=== PATIENT | male | born 1930 | race Caucasian/White ===

== ENCOUNTER → 2016-06-16 | Outpatient (CLI) | payer MEDICARE | LOC: OD 10:29 | PROVIDERS: ATTEND Student in an Organized Health Care Education/Training Program | DX: L03.116 Cellulitis of left lower limb (principal); M79.89 Other specified soft tissue disorders ==

== ENCOUNTER → 2016-07-25 | Outpatient (CLI) | payer MEDICARE, MEDICAID | LOC: OD 10:40 | PROVIDERS: ATTEND Nurse Practitioner Family | DX: L97.522 Non-pressure chronic ulcer of other part of left foot with fat layer exposed (principal) ==

== ENCOUNTER → 2016-07-26 | Outpatient (CLI) | payer MEDICARE, MEDICAID ==
--- NOTE | 2016-07-26 17:19 | XCELERA REPORT ---
[address] [address] Lower Extremity Arterial Evaluation Name: DYLLAN DEMARCO Age: 86 yrs Gender: Male : 1930 Patient Status: Outpatient Patient Location: Study Date: 07/26/2016 01:07 PM Procedure: A color flow and duplex scan of the lower extremity arteries was performed bilaterally with velocity and waveform anaylsis. 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 Stenosed Femoral , monophasic with preserved velocity to the Popliteal. Monophasic with decreased velocity to the Posterior Tibial artery. Occluded Anterior Tibial artery with monophasic reconstitution. 50-99% stenosis at the Femoral artery . With severe sequential disease. Ankle Brachial index not obtainable, non compressible. Left Side Arterial Evaluation Normal velocity and biphasic waveforms noted in the Common Femoral artery. Triphasic in the Deep femoral. Occluded Femoral , monophasic reconstitution with decreased velocity to the infrageniculate arteries. 20-49 % stenosis at the inflow arteries . With severe sequential disease. Ankle Brachial index not obtainable, non compressible. Interpretation Summary Severe hemodynamically significant lesions in the bilateral lower extremities, on duplex imaging, at rest. : JOSE JUAN ESPINAL > Juan Linton
== END ==
LOC: SP 12:32
PROVIDERS: ATTEND Nurse Practitioner Family
DX: L97.522 Non-pressure chronic ulcer of other part of left foot with fat layer exposed (principal)
CPT/HCPCS: 93925

== ENCOUNTER 2016-08-29 22:58 | Inpatient (IN) | payer MEDICARE, MEDICAID ==
--- NOTE | 2016-08-29 23:16 | ER Document Report ---
ED General - General Stated Complaint: WEAKNESS Time Seen by Provider: 08/29/16 23:05 Notes: Patient is a 86-year-old male who presents with complaint of weakness. Patient himself feels well. Patient lives with family. Per the paramedics of family says that yesterday he was up and walking and today he did not want to get up and walking easing more weak than usual. No recent fevers. Patient denies any pain. Patient has no other complaints at this time. Denies any vomiting or diarrhea. He denies chest pain. He had normal temperature via paramedics. His oxygenation was around 95% on room air. TRAVEL OUTSIDE OF THE [place] IN LAST 30 DAYS: No - Related Data Allergies/Adverse Reactions: No Known Allergies Allergy (Verified 03/10/12 10:44) Home Medications: Current Home Medications Aspirin [Aspirin EC] 1 tab PO DAILY 08/30/16 [History] Melatonin 3 mg PO DAILYP PRN 08/30/16 [History] Potassium Chloride [K-Tab] 10 meq PO DAILY 08/30/16 [History] Past Medical History - Social History Smoking Status: Never Smoker Frequency of alcohol use: None Drug Abuse: None Family History: Reviewed & Not Pertinent - Past Medical History Cardiac Medical History: Reports: Hx Atrial Fibrillation, Hx Coronary Artery Disease, Hx Heart Attack, Hx Hypercholesterolemia, Hx Hypertension Pulmonary Medical History: Reports: Hx COPD Renal/ Medical History: Reports: Hx Renal Insufficiency GI Medical History: Reports: Hx Gastroesophageal Reflux Disease Musculoskeltal Medical History: Reports Hx Arthritis, Reports Hx Gout Psychiatric Medical History: Reports: Hx Dementia Past Surgical History: Reports: Hx Cardiac Catheterization, Hx Cardiac Surgery - "hole in heart repair", Hx Coronary Stent, Hx Gastric Bypass Surgery, Hx Orthopedic Surgery - back surgery - Immunizations Hx Diphtheria, Pertussis, Tetanus Vaccination: No Review of Systems - Review of Systems Notes: My Normal Review Basic REVIEW OF SYSTEMS: CONSTITUTIONAL : Denies fever, chills, or sweats. Denies recent illness. EENT: Denies eye, ear, throat, or mouth pain or symptoms. Denies nasal or sinus congestion. CARDIOVASCULAR: Denies chest pain. RESPIRATORY: Denies cough, cold, or chest congestion. Denies shortness of breath, difficulty breathing, or wheezing. GASTROINTESTINAL: Denies abdominal pain. Denies nausea, vomiting, or diarrhea. GENITOURINARY: Denies difficulty urinating, painful urination, burning, frequency, or blood in urine. MUSCULOSKELETAL: Denies neck or back pain or joint pain or swelling. SKIN: Denies rash or skin lesions. NEUROLOGICAL: Denies altered mental status or loss of consciousness. Denies headache. Denies weakness or paralysis or loss of use of either side. Denies problems with gait or speech. Denies sensory or motor loss. ALL OTHER SYSTEMS REVIEWED AND NEGATIVE. Physical Exam - Vital signs Vitals: Temp Pulse Resp BP Pulse Ox 101.9 F H 97 18 125/65 95 08/29/16 23:20 08/29/16 23:20 08/29/16 23:20 08/29/16 23:20 08/29/16 23:20 - Notes Notes: General Appearance: Well nourished, alert, cooperative, no acute distress, no obvious discomfort. Vitals: reviewed, See vital signs table. Head: no swelling or tenderness to the head Eyes: PERRL, EOMI, Conjuctiva clear Mouth: No decreasd moisture Throat: No tonsillar inflammation, No airway obstruction, No lymphadenopathy Neck: Supple, no neck tenderness Lungs: No wheezing, No rales, No rhonci, No accessory muscle use, good air exchange bilaterally. Heart: Normal rate, Regular rythm, No murmur, no rub Abdomen: Normal BS, soft, No rigidity, No abdominal tenderness, No guarding, no rebound, no abdominal masses, no organomegaly Extremities: strength 5/5 in all extremities, good pulses in all extremities, no swelling or tenderness in the extremities, no edema. Skin: warm, dry, appropriate color, no rash. 2 small wounds which are packed with iodine dressing on the dorsum of left foot. Some surrounding erythema. Wounds appear to be healing appropriately. Neuro: speech clear, oriented x 3, normal affect, responds appropriately to questions. Nerves II through XII are intact. Distal sensation intact. Patient moves all extremities without difficulty. Course - Re-evaluation Re-evalutation: 08/30/16 05:59 The exact cause of the patient's infection is not clear at this time. I suspect that it may be coming from his foot. There is some erythema there. Family does say it has been worsening in the last week. I see no other source of infection. He continues to remain tachycardic despite improvement of his fever. I have given him some IV fluids. I have started him on antibiotics. I have spoken with the hospitalist who agrees to admit the patient. Dictation of this chart was performed using voice recognition software; therefore, there may be some unintended grammatical errors. - Vital Signs Vital signs: Temp Pulse Resp BP Pulse Ox 101.9 F H 97 17 100/60 95 08/29/16 23:20 08/29/16 23:20 08/30/16 04:01 08/30/16 04:01 08/30/16 04:01 - Laboratory Result Diagrams: 08/29/16 23:39 08/29/16 23:39 Laboratory results interpreted by me: 08/29/16 08/29/16 23:39 23:39 RBC 3.99 L Hgb 13.0 L MCV 99 H Sodium 134.9 L Chloride 96 L BUN 63 H Creatinine 1.77 H Est GFR ( Amer) 44 L Est GFR (Non-Af Amer) 37 L Glucose 155 H Alkaline Phosphatase 206 H - EKG Interpretation by Me Additional EKG results interpreted by me: 08/29/16 23:47 EKG is reviewed and interpreted by me. EKG shows normal sinus rhythm with a rate of 93 bpm. Patient does have a right bundle branch block which is unchanged in comparison to his old EKG from November 24, 2015. OR interval is within normal range. QRS duration QT intervals are prolonged. No ischemic changes in comparison to his old EKG.
[2016-08-29] MEDS ORDERED: ACETAMINOPHEN 325 MG TABLET PO ONE (23:19)
--- NOTE | 2016-08-29 23:32 | RADIOLOGY REPORT (SQ) ---
EXAM DESCRIPTION: CHEST SINGLE VIEW COMPLETED DATE/TIME: 08/29/2016 11:23 pm REASON FOR STUDY: weakness COMPARISON: 11/24/2015 NUMBER OF VIEWS: One view. TECHNIQUE: Single frontal radiographic view of the chest acquired. LIMITATIONS: None. FINDINGS: LUNGS AND PLEURA: Peribronchial cuffing and increased interstitial changes. No consolidati on, pneumothorax or effusion. MEDIASTINUM AND HILAR STRUCTURES: Stable. HEART AND VASCULAR STRUCTURES: Stable. BONES: No acute findings. HARDWARE: CABG. OTHER: No other significant finding. IMPRESSION: Peribronchial cuffing and increased interstitial changes, likely early interstitial sun meliza TECHNICAL DOCUMENTATION: JOB ID: [id number] [employer]- All Rights Reserved
[2016-08-29 23:51] LABS: ABSOLUTE EOSINOPHILS # (AUTO) 0.1 10^3/uL (0.0-0.6); ABSOLUTE LYMPHOCYTES (AUTO) 1.7 10^3/uL (0.5-4.7); ABSOLUTE MONOCYTES (AUTO) 0.4 10^3/uL (0.1-1.4); ABSOLUTE NEUT (AUTO) 7.3 10^3/uL (1.7-8.2); BASOPHILS % (AUTO) 0.4 % (0-2); EOSINOPHILS % (AUTO) 0.7 % (0-6); HEMATOCRIT 39.3 % (37.9-51.0); HGB HCT DIFFERENCE -0.3; LYMPHOCYTES % (AUTO) 18.1 % (13-45); MEAN CORPUSCULAR HEMOGLOBIN 32.6 pg (27.0-33.4); MEAN CORPUSCULAR VOLUME 99 fl (80-97); RED BLOOD COUNT 3.99 10^6/uL (4.35-5.55); RED CELL DISTRIBUTION WIDTH 13.3 % (11.5-14.0); SEGMENTED NEUTROPHILS % (AUTO) 76.8 % (42-78); WHITE BLOOD COUNT 9.4 10^3/uL (4.0-10.5)
[2016-08-30] LABS: ALANINE AMINOTRANSFERASE 37 U/L (21-72); ALBUMIN 3.5 g/dL (3.5-5.0); ALKALINE PHOSPHATASE 206 U/L (38-126); ANION GAP 14 (5-19); ASPARTATE AMINO TRANSFERASE 44 U/L (17-59); BILIRUBIN,DIRECT 0.4 mg/dL (0.0-0.4); BILIRUBIN,TOTAL 0.8 mg/dL (0.2-1.3); BLOOD UREA NITROGEN 63 mg/dL (7-20); CALCIUM 8.8 mg/dL (8.4-10.2); CARBON DIOXIDE 25 mmol/L (22-30); CHLORIDE 96 mmol/L (98-107); CREATININE RESULT 1.77 mg/dL (0.52-1.25); GLUCOSE 155 mg/dL (75-110); POTASSIUM 4.8 mmol/L (3.6-5.0); SODIUM 134.9 mmol/L (137-145); TOTAL PROTEIN 6.7 g/dL (6.3-8.2)
[2016-08-30 01:31] LABS: APPEARANCE,URINE CLEAR; BILIRUBIN,URINE NEGATIVE (NEGATIVE); GLUCOSE, URINE NEGATIVE (NEGATIVE); KETONES,URINE NEGATIVE (NEGATIVE); LEUKOCYTE ESTERASE,URINE NEGATIVE (NEGATIVE); NITRITE,URINE NEGATIVE (NEGATIVE); PROTEIN,URINE NEGATIVE (NEGATIVE); URINE SPECIFIC GRAVITY 1.011; UROBILINOGEN,URINE NEGATIVE mg/dL (<2.0)
[2016-08-30] MEDS ORDERED: CEFTRIAXONE 1 GM/D5W RTU 50 ML IV ONE (02:53)
[2016-08-30] MEDS ORDERED: VANCOMYCIN HCL INJ 1000 MG VIAL IV ONE (02:53)
[2016-08-30] MEDS ORDERED: NORMAL SALINE 500 ML IV ONE (02:53)
[2016-08-30] MEDS ORDERED: OXYCODONE-ACETAMINOPHEN 5-325 MG TABLET PO PRN (08:12)
[2016-08-30] MEDS ORDERED: NORMAL SALINE 1000 ML 1,000 ML IV PRN (08:12)
[2016-08-30] MEDS ORDERED: ONDANSETRON HCL INJ/PF 4 MG/2 ML SDV IV PRN (08:12)
[2016-08-30] MEDS ORDERED: ACETAMINOPHEN 325 MG TABLET PO PRN (08:12)
[2016-08-30 09:12] LABS: ABSOLUTE EOSINOPHILS # (AUTO) 0.5 10^3/uL (0.0-0.6); ABSOLUTE LYMPHOCYTES (AUTO) 2.6 10^3/uL (0.5-4.7); ABSOLUTE MONOCYTES (AUTO) 0.5 10^3/uL (0.1-1.4); ABSOLUTE NEUT (AUTO) 5.4 10^3/uL (1.7-8.2); BASOPHILS % (AUTO) 0.5 % (0-2); HEMOGLOBIN 11.8 g/dL (13.5-17.0); HGB HCT DIFFERENCE -0.6; LYMPHOCYTES % (AUTO) 28.6 % (13-45); MEAN CORPUSCULAR HEMOGLOBIN 32.8 pg (27.0-33.4); MEAN CORPUSCULAR HGB CONC 32.8 g/dL (32.0-36.0); MEAN CORPUSCULAR VOLUME 100 fl (80-97); MONOCYTES % (AUTO) 5.7 % (3-13); RED CELL DISTRIBUTION WIDTH 13.6 % (11.5-14.0); SEGMENTED NEUTROPHILS % (AUTO) 59.2 % (42-78); WHITE BLOOD COUNT 9.1 10^3/uL (4.0-10.5)
[2016-08-30 09:29] LABS: ANION GAP 9 (5-19); BLOOD UREA NITROGEN 66 mg/dL (7-20); CALCIUM 8.4 mg/dL (8.4-10.2); CARBON DIOXIDE 26 mmol/L (22-30); CHLORIDE 100 mmol/L (98-107); CREATININE RESULT 1.83 mg/dL (0.52-1.25); GLUCOSE 90 mg/dL (75-110); POTASSIUM 4.1 mmol/L (3.6-5.0); SODIUM 134.5 mmol/L (137-145)
[2016-08-30] MEDS: AZITHROMYCIN 250 MG TABLET PO SCH (09:48)
[2016-08-30] MEDS: ALLOPURINOL 100 MG TABLET PO SCH (09:48)
[2016-08-30] MEDS: ASPIRIN 81 MG TABLET, ENT COATED PO SCH (09:48)
[2016-08-30] MEDS: DILTIAZEM HCL 120 MG CAP.SR.24H PO SCH (09:49)
[2016-08-30] MEDS: MEMANTINE HCL 10 MG TABLET PO SCH ×2 (09:49→20:01)
[2016-08-30] MEDS: DOCUSATE SODIUM 100 MG CAPSULE PO SCH ×2 (09:51→20:02)
[2016-08-30] MEDS: METOPROLOL TARTRATE 50 MG TABLET PO SCH (09:51)
[2016-08-30] MEDS ORDERED: GLUCAGON,HUMAN RECOMB 1 MG INJ IM PRN (09:55)
[2016-08-30] MEDS ORDERED: DEXTROSE 50%-WATER 25 GM/50 ML DISP.SYRIN IV PRN ×2 (09:55)
[2016-08-30] MEDS ORDERED: INSULIN LISPRO 100 UNIT/ML 3 ML VIAL SUBCUT PRN (09:55)
[2016-08-30] MEDS ORDERED: DEXTROSE 40% GEL 15 GM TUBE PO PRN ×2 (09:55)
[2016-08-30] MEDS ORDERED: VANCOMYCIN HCL 0 MG in DEXTROSE 5%-WATER 250 ML IV NR (10:00)
--- NOTE | 2016-08-30 10:23 | PDOC H&P ---
History of Present Illness Admission Date/PCP: 08/30/16 08:12 History of Present Illness: Patient has dementia and is unable to tell me why he is here. There is no family present at bedside. Current history is obtained from the emergency department notes and physician notes. I did discuss this with the ER physician. DYLLAN DEMARCO JR is a 86 year old male who presents with complaint of weakness. Patient himself feels well. Patient lives with family. Per the paramedics of family says that yesterday he was up and walking and today he did not want to get up and walking easing more weak than usual. No recent fevers. Patient denies any pain. Patient has no other complaints at this time. Denies any vomiting or diarrhea. He denies chest pain. He had normal temperature via paramedics. His oxygenation was around 95% on room air. Past Medical History Cardiac Medical History: Reports: Atrial Fibrillation, Coronary Artery Disease, Myocardial Infarction, Hyperlipidema, Hypertension Pulmonary Medical History: Reports: Chronic Obstructive Pulmonary Disease (COPD) GI Medical History: Reports: Gastroesophageal Reflux Disease Musculoskeltal Medical History: Reports: Arthritis, Gout Psychiatric Medical History: Reports: Dementia Past Surgical History Past Surgical History: Reports: Cardiac Catheterization, Coronary Stent, Gastric Bypass Surgery, Orthopedic Surgery - back surgery Social History Smoking Status: Never Smoker Frequency of Alcohol Use: None Hx Recreational Drug Use: No Hx Prescription Drug Abuse: No - Advance Directive Resuscitation Status: Other Family History Family History: Reviewed & Not Pertinent Parental Family History Reviewed: No - Demented Children Family History Reviewed: No Sibling(s) Family History Reviewed.: No Medication/Allergy Home Medications: Allopurinol [Zyloprim 100 mg Tablet] 100 mg PO DAILY 02/27/13 Diltiazem HCl [Dilt-Cd] 120 mg PO DAILY 02/27/13 Furosemide [Lasix 40 mg Tablet] 40 mg PO QAM 02/27/13 Memantine HCl [Namenda 10 mg Tablet] 10 mg PO BID 02/27/13 Metoprolol Tartrate [Lopressor 50 mg Tablet] 50 mg PO DAILY 02/27/13 Potassium Chloride 10 meq PO DAILY 02/27/13 Aspirin [Aspirin EC] 1 tab PO DAILY 08/30/16 Melatonin 3 mg PO DAILYP PRN 08/30/16 Potassium Chloride [K-Tab] 10 meq PO DAILY 08/30/16 Allergies/Adverse Reactions: No Known Allergies Allergy (Verified 03/10/12 10:44) Review of Systems ROS unobtainable: Due to mental status Physical Exam Vital Signs: Temp Pulse Resp BP Pulse Ox 97.6 F 97 17 110/61 95 08/30/16 08:45 08/29/16 23:20 08/30/16 06:01 08/30/16 06:01 08/30/16 06:01 General appearance: PRESENT: no acute distress, well-developed, well-nourished Head exam: PRESENT: atraumatic, normocephalic Eye exam: PRESENT: conjunctival injection - right eye, conjunctiva pink, EOMI, PERRLA. ABSENT: scleral icterus Ear exam: PRESENT: normal external ear exam Mouth exam: PRESENT: moist, tongue midline Neck exam: ABSENT: JVD, lymphadenopathy, thyromegaly, tracheal deviation Respiratory exam: PRESENT: prolonged expiratory phas, rhonchi - Minimal scattered, symmetrical, unlabored. ABSENT: accessory muscle use, chest wall tenderness, clear to auscultation yadira, rales, wheezes Cardiovascular exam: PRESENT: irregular rhythm, +S1, +S2, systolic murmur. ABSENT: diastolic murmur, gallop, rubs Pulses: ABSENT: normal dorsalis pedis pul - 1+/ dorsalis pedis right Vascular exam: PRESENT: normal capillary refill GI/Abdominal exam: PRESENT: distended, normal bowel sounds, soft. ABSENT: guarding, mass, Bocanegra's sign, organolmegaly, rebound, rigid, tenderness Rectal exam: PRESENT: deferred Extremities exam: ABSENT: calf tenderness, clubbing, pedal edema Neurological exam: PRESENT: alert, awake, oriented to person, CN II-XII grossly intact. ABSENT: oriented to place, oriented to time, oriented to situation, motor sensory deficit Psychiatric exam: PRESENT: appropriate affect, normal mood, other - Pleasantly demented. ABSENT: homicidal ideation, suicidal ideation Skin exam: PRESENT: dry, warm. ABSENT: cyanosis, intact - 2 1 cm in diameter lesions on the dorsal aspect of the right foot consistent with venous stasis ulcers, rash Results Laboratory Results: 08/30/16 09:00 08/30/16 09:00 08/30/16 08/30/16 09:00 09:00 WBC 9.1 RBC 3.60 L Hgb 11.8 L Hct 36.0 L MCV 100 H MCH 32.8 MCHC 32.8 RDW 13.6 Plt Count 148 L Seg Neutrophils % 59.2 Lymphocytes % 28.6 Monocytes % 5.7 Eosinophils % 6.0 Basophils % 0.5 Absolute Neutrophils 5.4 Absolute Lymphocytes 2.6 Absolute Monocytes 0.5 Absolute Eosinophils 0.5 Absolute Basophils 0.0 Sodium 134.5 L Potassium 4.1 Chloride 100 Carbon Dioxide 26 Anion Gap 9 BUN 66 H Creatinine 1.83 H Est GFR ( Amer) 43 L Est GFR (Non-Af Amer) 35 L Glucose 90 Calcium 8.4 08/30/16 09:00 Troponin I 0.031 Impressions: Chest X-Ray 08/29/16 23:12 IMPRESSION: Peribronchial cuffing and increased interstitial changes, likely early interstitial edema. Assessment & Plan - Diagnosis (1) Sepsis Qualifiers: Sepsis type: sepsis due to unspecified organism Qualified Code(s): A41.9 - Sepsis, unspecified organism Is this a current diagnosis for this admission?: YesPlan: Technical sepsis criteria on admission with my current suspected source being underlying pneumonia plus or minus cellulitis (2) Afib Qualifiers: Atrial fibrillation type: chronic Qualified Code(s): I48.2 - Chronic atrial fibrillation Is this a current diagnosis for this admission?: YesPlan: Currently on metoprolol and is not on blood thinner. (3) CAD (coronary artery disease) Qualifiers: Coronary Disease-Associated Artery/Lesion type: unspecified vessel or lesion type [place] vs. transplanted heart: unspecified whether [place] or transplanted heart Is this a current diagnosis for this admission?: Yes (4) Chronic obstructive pulmonary disease (COPD) Qualifiers: COPD type: unspecified COPD Qualified Code(s): J44.9 - Chronic obstructive pulmonary disease, unspecified Is this a current diagnosis for this admission?: YesPlan: We will repeat patient's chest x-ray. Suspect patient may have underlying pneumonia. Place on scheduled nebulized treatments. (5) Dementia Qualifiers: Dementia type: unspecified type Dementia behavioral disturbance: without behavioral disturbance Qualified Code(s): F03.90 - Unspecified dementia without behavioral disturbance Is this a current diagnosis for this admission?: Yes (6) Gout Qualifiers: Gout site: unspecified site Gout etiology: unspecified cause Chronicity: chronic Is this a current diagnosis for this admission?: YesPlan: continue allopurinol (7) HTN (hypertension) Qualifiers: Hypertension type: essential hypertension Qualified Code(s): I10 - Essential (primary) hypertension Is this a current diagnosis for this admission?: YesPlan: Lopressor and diltiazem. 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 Will renally adjust patient's medications. (9) Venous stasis ulcers Is this a current diagnosis for this admission?: YesPlan: This appears to be well-healing, will continue home regimen for wound care once this is reconciled. - Time Time Spent: 50 to 70 Minutes Medications reviewed and adjusted accordingly: Yes Anticipated discharge: Acute Rehab Within: within 48 hours - Inpatient Certification Based on my medical assessment, after consideration of the patient's comorbidities, presenting symptoms, or acuity I expect that the services needed warrant INPATIENT care.: Yes I certify that my determination is in accordance with my understanding of Medicare's requirements for reasonable and necessary INPATIENT services [42 CFR 412.3e].: Yes Medical Necessity: Need for IV Antibiotics Post Hospital Care: D/C Cna Instructor Documentation
[2016-08-30] MEDS ORDERED: PHARMACY COMMUNICATION ORDER MC NR (10:30)
[2016-08-30] MEDS ORDERED: VANCOMYCIN HCL 500 MG in DEXTROSE 5%-WATER 100 ML IV SCH (12:00)
--- NOTE | 2016-08-30 12:44 | EKG REPORT ---
SEVERITY:- ABNORMAL ECG - SINUS RHYTHM RIGHT BUNDLE BRANCH BLOCK : Confirmed by: Elisabeth Navarro MD 30-Aug-2016 12:43:11
[2016-08-30] MEDS: HEPARIN SOD (PORCINE) 5,000 UNIT/ML 1 ML SYRINGE SUBCUT SCH ×2 (13:24→21:56)
--- NOTE | 2016-08-30 13:41 | RADIOLOGY REPORT (SQ) ---
EXAM DESCRIPTION: CHEST PA/LAT COMPLETED DATE/TIME: 08/30/2016 12:41 pm REASON FOR STUDY: ?pna COMPARISON: AP chest 08/29/2016, 11/24/2015, 01/30/2013 EXAM PARAMETERS: NUMBER OF VIEWS: two views TECHNIQUE: Digital Frontal and Lateral radiographic views of the chest acquired. RADIATION DOSE: NA LIMITATIONS: none FINDINGS: LUNGS AND PLEURA: Low lung volumes, with mild increased interstitial markings throughout t he periphery of both lungs similar compared to previous studies likely reflecting some mild pulmonary fibrosis. No dense consolidation worrisome for lobar pneumonia. No pleural effusion. No pneumothorax. MEDIASTINUM AND HILAR STRUCTURES: No masses or contour abnormalities. HEART AND VASCULAR STRUCTURES: Mild cardiomegaly, stable BONES: Old sternotomy for CABG. HARDWARE: None in the chest. OTHER: No other significant finding. IMPRESSION: No definite acute findings. TECHNICAL DOCUMENTATION: JOB ID: [id number] [employer] All Rights Reserved
[2016-08-30] MEDS: CEFTRIAXONE 2 GM/D5W RTU 2 GM/50 ML RTUPB IV SCH (21:56)
[2016-08-30] MEDS ORDERED: (PENDING PHARMACY ID) (Melatonin [Melatonin] 3 MG) PO SCH (22:00)
[2016-08-31] MEDS: HEPARIN SOD (PORCINE) 5,000 UNIT/ML 1 ML SYRINGE SUBCUT SCH ×3 (06:07→21:15)
[2016-08-31 07:56] LABS: ABSOLUTE BASOPHILS # (AUTO) 0.1 10^3/uL (0.0-0.2); ABSOLUTE EOSINOPHILS # (AUTO) 1.1 10^3/uL (0.0-0.6); ABSOLUTE LYMPHOCYTES (AUTO) 2.2 10^3/uL (0.5-4.7); ABSOLUTE MONOCYTES (AUTO) 0.4 10^3/uL (0.1-1.4); ABSOLUTE NEUT (AUTO) 3.5 10^3/uL (1.7-8.2); BASOPHILS % (AUTO) 1.3 % (0-2); EOSINOPHILS % (AUTO) 14.6 % (0-6); HEMATOCRIT 34.1 % (37.9-51.0); HEMOGLOBIN 11.4 g/dL (13.5-17.0); HGB HCT DIFFERENCE 0.1; LYMPHOCYTES % (AUTO) 30.2 % (13-45); MEAN CORPUSCULAR HEMOGLOBIN 32.8 pg (27.0-33.4); MEAN CORPUSCULAR HGB CONC 33.5 g/dL (32.0-36.0); MEAN CORPUSCULAR VOLUME 98 fl (80-97); MONOCYTES % (AUTO) 5.9 % (3-13); RED BLOOD COUNT 3.48 10^6/uL (4.35-5.55); RED CELL DISTRIBUTION WIDTH 13.8 % (11.5-14.0); WHITE BLOOD COUNT 7.2 10^3/uL (4.0-10.5)
[2016-08-31 08:17] LABS: ANION GAP 9 (5-19); BLOOD UREA NITROGEN 59 mg/dL (7-20); CALCIUM 8.5 mg/dL (8.4-10.2); CARBON DIOXIDE 25 mmol/L (22-30); CHLORIDE 103 mmol/L (98-107); GLUCOSE 112 mg/dL (75-110); POTASSIUM 4.1 mmol/L (3.6-5.0); SODIUM 136.7 mmol/L (137-145)
--- NOTE | 2016-08-31 10:13 | ST Inp Modified Barium Swallow ---
Medical Diagnosis - Medical Diagnoses Medical Diagnosis Description & ICD-10 Code(s): s/sx of aspiration at bedside - ICD-10 Tx Diagnosis Coding (1) Dysphagia, oral phase ICD-10 Code(s): R13.11 - DYSPHAGIA, ORAL PHASE (2) Dysphagia, oropharyngeal phase ICD-10 Code(s): R13.12 - DYSPHAGIA, OROPHARYNGEAL PHASE (3) Dysphagia, pharyngeal phase ICD-10 Code(s): R13.13 - DYSPHAGIA, PHARYNGEAL PHASE ST Inpatient MBS - General Date: 08/31/16 Date of Onset: 08/30/16 - History History Obtained From: Patient - per EMR -: Medical - per EMR; sepsis, cellulitus, dementia, a-fib, CAD, COPD, CKD stage 4. Chest xrays show no difinite findings. PMHx: a-fib, CAD, UT, HLD, HTN, COPD, GERD, arthritis, Gout, dementia. MBSS completed due to s/sx pof aspiration at bedside dysphagia evaluation. Medications: Medications Reviewed Allergies: Refer to medical record - Subjective Current Nutritional Means: PO Current PO Diet: Pureed Current Symptoms: Coughing Pain: 0/5 - Objective Assessment: Upright, Left Lateral - Food Trials Food Trials Used: Thin liquids, Pureed, Soft solids The Patient: fed by ST - Assessment Labial Function: Within Functional Limits Lingual Function: Impaired - decreased ROM, lingual pumping Mandibular Function: Within Functional Limits Dentition: Edentulous Velo-Pharyngeal Function: Unremarkable Laryngeal Function: Throat Clear, Volitional Swallow, Weak Cough - Pharyngeal Stage Initiation of Pharyngeal Stage: Delayed Reflex Delay Time (seconds): 1 Decreased Laryngeal Elevation: Yes - mild Reduced Velo-Pharyngeal Closure: no Reduced Pressure Generation: Yes - mild Reduced Tongue Base Retraction: Yes - mild-moderate Pre-Swallowing Pooling in Valleculae: Mild Pre-Swallowing Pooling in Pyriforms: Mild Reduced Thyro-Hyiod Approximation: Yes - mild Reduced Epiglottic Excursion: Yes - mild Reduced Pharyngeal Peristalsis: Yes - mild-moderate Post Swallow Residuals in Valleculae: Moderate - on puree and soft solids, mild on thin Post Swallow Residuals in Pyriforms: Mild - on puree, soft solids and thin - Impression/Summary Laryngeal Penetration: Yes - mixed residuals of puree and thin, Cough, Cleared, after swallow Tracheal Aspiration: yes - residuals of puree, silent, after swallow Effective Compensatory Strategies: throat clear & reswallow - inconsistent effectiveness Patient Presents With: Oral stage dysphagia, Pharyngeal stage dysph., Oral- Pharyngeal dysph. Risk of Aspiration: Severe - mod-severe - Recommendations Solid Diet Recommendations: Pureed Liquid Diet Recommendations: Thin Strict Aspitarion Precautions: Yes Dysphagia Therapy with [facility]: No - due to cognitive status, pt not following commands for swallowing exercises. Pt noted to become confused and ask why ST is feeling neck with all exercises attempts. Recommended Techniques: Fully Upright During Meal, Small Bites and Sips, Alternate Bites/Sips Supervision: requires assistance - for safe feeding strategies Other Recommendations: 1) DIET: puree and thin. ST contacted MD regarding penetration of mixed residuals and aspiration of residuals of puree. MD informed high risk of aspiration on PO diet due to dysphagia and cognitive status. MD verbalized understanding, wishes to speak with family and continue PO diet of puree and thin at this time. ST in agreement. 2) STRATEGIES: Aspiration precautions, slow rate of intake, small bites and sips, no straws, alternate bites and sips, assistance with feeding due to cognitive status (pt unable to recall strategies without cues.). SUMMARY: Pt presents with a moderate oral and pharyngeal dysphagia placing pt at risk of aspiration on any PO diet. Aspiration of puree residuals seen during study-no cough response. Cough response noted to be present (seen on penetration), however inconsistent. ST to sign off at this time. - Time Total Time: 25 Total Timed Minutes: 0 ST F.L. Impairment Category - Rationale Based On Rationale Based On: Clin Find., Obj Measures - Swallowing Current G8996: CK 40-59% Impaired Goal G8997: CK 40-59% Impaired Discharge G8998: CK 40-59% Impaired
[2016-08-31] MEDS: DOCUSATE SODIUM 100 MG CAPSULE PO SCH ×2 (10:31→16:30)
[2016-08-31] MEDS: AZITHROMYCIN 250 MG TABLET PO SCH (10:31)
[2016-08-31] MEDS: DILTIAZEM HCL 120 MG CAP.SR.24H PO SCH (10:31)
[2016-08-31] MEDS: ASPIRIN 81 MG TABLET, ENT COATED PO SCH (10:31)
[2016-08-31] MEDS: MEMANTINE HCL 10 MG TABLET PO SCH ×2 (10:31→16:30)
[2016-08-31] MEDS: FUROSEMIDE 40 MG TABLET PO SCH (10:31)
[2016-08-31] MEDS: ALLOPURINOL 100 MG TABLET PO SCH (10:32)
[2016-08-31] MEDS: METOPROLOL TARTRATE 50 MG TABLET PO SCH (10:32)
--- NOTE | 2016-08-31 15:26 | Physician Advisory Note ---
Physician Advisor ProgressNote .: [facility] I have reviewed the medical record for this patient. Physician Advisor Statement: Such beautiful documentation of CKD stage 4. 1. Please, when pt meets sepsis criteria, state whether or not you believe pt has sepsis clinically. - "Technical sepsis criteria on adm" sounds like attg doesn't really feel pt has sepsis, & will result in a query if not made more explicit. - If attg doesn't think pt was actually septic, THAT IS FINE - just state "do not think pt is/was clinically septic"! They can't all be septic. - If attg really feels particular pt was actually septic, then please make that clear as well, w/reasons. 2. If (+)PNA, please document involved lobe, & suspected/possible type organism . - ? "suspect gram-negative given underlying pulmonary fibrosis"? - ? "suspect aspiration type" (checking swallow eval...)? 3. "mild pulmonary fibrosis, by CXR" Thanks! CK
--- NOTE | 2016-08-31 19:36 | PDOC PROGRESS REPORT ---
Subjective Progress Note for:: 08/31/16 Subjective:: We will to obtain review of systems from patient secondary to underlying dementia. He does however deny any chest pain, shortness of breath, nausea, vomiting, fever, or generalized pain. Examined with his daughter and her at bedside. I did discuss with him in full details of from his modified barium swallow study. Physical Exam Vital Signs: Temp Pulse Resp BP Pulse Ox 98.7 F 76 18 150/59 H 93 08/31/16 16:12 08/31/16 16:12 08/31/16 16:12 08/31/16 16:12 08/31/16 16:12 Intake & Output 08/30/16 08/31/16 09/01/16 06:59 06:59 06:59 Intake Total 700 831 Balance 700 831 Weight 143.1 kg 63.185 kg Exam: GENERAL: No acute distress HEENT: Conjunctiva clear, nonicteric, moist mucous membranes, no JVD, midline trachea RESPIRATORY: rhonchi bilateral CARDIAC: IRR, +SM, no rub or gallop ABDOMEN: Soft, nondistended, nontender, positive bowel sounds, no rebound, no guarding EXTREMETIES: No edema, cyanosis, clubbing NEUROLOGIC: Alert, oriented to person, CN's grossly intact SKIN: No rash, wounds PSYCH: Normal mood, normal affect Results Laboratory Results: 08/31/16 07:46 08/31/16 07:46 08/31/16 08/31/16 07:46 07:46 WBC 7.2 RBC 3.48 L Hgb 11.4 L Hct 34.1 L MCV 98 H MCH 32.8 MCHC 33.5 RDW 13.8 Plt Count 157 Seg Neutrophils % 48.0 Lymphocytes % 30.2 Monocytes % 5.9 Eosinophils % 14.6 H Basophils % 1.3 Absolute Neutrophils 3.5 Absolute Lymphocytes 2.2 Absolute Monocytes 0.4 Absolute Eosinophils 1.1 H Absolute Basophils 0.1 Sodium 136.7 L Potassium 4.1 Chloride 103 Carbon Dioxide 25 Anion Gap 9 BUN 59 H Creatinine 1.50 H Est GFR ( Amer) 54 L Est GFR (Non-Af Amer) 44 L Glucose 112 H Calcium 8.5 Magnesium 2.0 08/30/16 08/30/16 08/30/16 09:00 15:00 21:05 Troponin I 0.031 0.024 0.029 Impressions: Chest X-Ray 08/30/16 00:00 IMPRESSION: No definite acute findings. Assessment & Plan - Diagnosis (1) Sepsis Qualifiers: Sepsis type: sepsis due to unspecified organism Qualified Code(s): A41.9 - Sepsis, unspecified organism Is this a current diagnosis for this admission?: YesPlan: Technical sepsis criteria on admission with my current suspected source being underlying pneumonia plus or minus cellulitis, patient demonstrates no signs of endorgan damage. (2) Afib Qualifiers: Atrial fibrillation type: chronic Qualified Code(s): I48.2 - Chronic atrial fibrillation Is this a current diagnosis for this admission?: YesPlan: Currently on metoprolol and is not on blood thinner. (3) CAD (coronary artery disease) Qualifiers: Coronary Disease-Associated Artery/Lesion type: unspecified vessel or lesion type [place] vs. transplanted heart: unspecified whether [place] or transplanted heart Is this a current diagnosis for this admission?: Yes (4) Chronic obstructive pulmonary disease (COPD) Qualifiers: COPD type: unspecified COPD Qualified Code(s): J44.9 - Chronic obstructive pulmonary disease, unspecified Is this a current diagnosis for this admission?: Yes (5) Dementia Qualifiers: Dementia type: unspecified type Dementia behavioral disturbance: without behavioral disturbance Qualified Code(s): F03.90 - Unspecified dementia without behavioral disturbance Is this a current diagnosis for this admission?: Yes (6) Gout Qualifiers: Gout site: unspecified site Gout etiology: unspecified cause Chronicity: chronic Is this a current diagnosis for this admission?: Yes (7) HTN (hypertension) Qualifiers: Hypertension type: essential hypertension Qualified Code(s): I10 - Essential (primary) hypertension Is this a current diagnosis for this admission?: YesPlan: Lopressor and diltiazem. 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 Will renally adjust patient's medications. (9) Venous stasis ulcers Is this a current diagnosis for this admission?: Yes (10) Dysphagia, oropharyngeal phase Is this a current diagnosis for this admission?: YesPlan: Patient is found to not be safe for any consistency of food or fluid. Have discussed this with family and they are in agreement that the PEG tube is not in patient's best interest. They do understand the continuing to feed patient may result in life-threatening or life ending aspiration pneumonia. They accept of consequence. - Time Time Spent with patient: 25-34 minutes Medications reviewed and adjusted accordingly: Yes Anticipated discharge: Home with Homehealth Within: within 48 hours
[2016-08-31] MEDS: CEFTRIAXONE 2 GM/D5W RTU 2 GM/50 ML RTUPB IV SCH (21:15)
[2016-09-01] MEDS: HYDRALAZINE HCL INJ/PF 20 MG/1 ML SDV IV PRN ×2 (01:01→23:27)
[2016-09-01] MEDS ORDERED: METOPROLOL TARTRATE PF/INJ 5 MG/5 ML SDV IV ONE (04:45)
[2016-09-01 05:10] LABS: ABSOLUTE BASOPHILS # (AUTO) 0.1 10^3/uL (0.0-0.2); ABSOLUTE EOSINOPHILS # (AUTO) 0.8 10^3/uL (0.0-0.6); ABSOLUTE LYMPHOCYTES (AUTO) 2.3 10^3/uL (0.5-4.7); ABSOLUTE MONOCYTES (AUTO) 0.4 10^3/uL (0.1-1.4); ABSOLUTE NEUT (AUTO) 3.7 10^3/uL (1.7-8.2); BASOPHILS % (AUTO) 1.4 % (0-2); EOSINOPHILS % (AUTO) 11.4 % (0-6); HEMATOCRIT 35.4 % (37.9-51.0); HGB HCT DIFFERENCE 0.6; LYMPHOCYTES % (AUTO) 31.3 % (13-45); MEAN CORPUSCULAR HEMOGLOBIN 33.6 pg (27.0-33.4); MEAN CORPUSCULAR HGB CONC 33.8 g/dL (32.0-36.0); MEAN CORPUSCULAR VOLUME 99 fl (80-97); MONOCYTES % (AUTO) 5.6 % (3-13); RED BLOOD COUNT 3.56 10^6/uL (4.35-5.55); RED CELL DISTRIBUTION WIDTH 13.4 % (11.5-14.0); SEGMENTED NEUTROPHILS % (AUTO) 50.3 % (42-78); WHITE BLOOD COUNT 7.3 10^3/uL (4.0-10.5)
[2016-09-01 05:36] LABS: ANION GAP 12 (5-19); BLOOD UREA NITROGEN 55 mg/dL (7-20); CALCIUM 8.6 mg/dL (8.4-10.2); CARBON DIOXIDE 21 mmol/L (22-30); CHLORIDE 106 mmol/L (98-107); GLUCOSE 89 mg/dL (75-110); POTASSIUM 4.3 mmol/L (3.6-5.0); SODIUM 138.8 mmol/L (137-145)
[2016-09-01] MEDS: HEPARIN SOD (PORCINE) 5,000 UNIT/ML 1 ML SYRINGE SUBCUT SCH ×3 (06:11→21:29)
[2016-09-01] MEDS ORDERED: ONDANSETRON HCL INJ/PF 4 MG/2 ML SDV IV PRN (07:16)
[2016-09-01] MEDS: DILTIAZEM HCL 120 MG CAP.SR.24H PO SCH (09:22)
[2016-09-01] MEDS: DOCUSATE SODIUM 100 MG CAPSULE PO SCH ×2 (09:22→17:22)
[2016-09-01] MEDS: AZITHROMYCIN 250 MG TABLET PO SCH (09:23)
[2016-09-01] MEDS: ALLOPURINOL 100 MG TABLET PO SCH (09:23)
[2016-09-01] MEDS: ASPIRIN 81 MG TABLET, ENT COATED PO SCH (09:23)
[2016-09-01] MEDS: MEMANTINE HCL 10 MG TABLET PO SCH ×2 (09:23→17:22)
[2016-09-01] MEDS: METOPROLOL TARTRATE 50 MG TABLET PO SCH ×2 (09:23→21:29)
[2016-09-01] MEDS: FUROSEMIDE 40 MG TABLET PO SCH (09:23)
--- NOTE | 2016-09-01 16:55 | RADIOLOGY REPORT (SQ) ---
EXAM DESCRIPTION: MARIIAIE SWALLOW COMPLETED DATE/TIME: 08/31/2016 10:00 am REASON FOR STUDY: s/sx of aspiration at bedside COMPARISON: None. TECHNIQUE: Videofluoroscopic swallowing examination was performed in conjunction with speech patholo gy. Videofluoroscopic imaging was obtained and reviewed and these are the findings: RADIATION DOSE: 2 minutes 13 seconds of fluoroscopy was used. 1 images saved to PACS. LIMITATIONS: None FINDINGS: The patient was brought into the fluoro room and placed upright on a modified barium swall ow chair. The patient was then given multiple consistencies mixed with barium to swallow under live fluoroscopic video guidance. According to the Speech Pathologist there was laryngeal penetration to level of the vocal cords from post swallow residuals from the vallecular. No aspiration seen. Post s wallow residuals in the valleculae and piriform sinuses. IMPRESSION: LARYNGEAL PENETRATION DESCRIBED. NO ASPIRATION SEEN.PLEASE SEE SPEECH PATHOLOGIST RE PORT FOR OTHER FINDINGS AND RECOMMENDATIONS. COMMENT: Quality ID [id number]: Final reports for procedures using fluoroscopy that document radiation exp osure indices, or exposure time and number of fluorographic images (if radiation exposure indices are not available) TECHNICAL DOCUMENTATION: JOB ID: [id number] [employer]- All Rights Reserved
--- NOTE | 2016-09-01 18:07 | PDOC PROGRESS REPORT ---
Subjective Progress Note for:: 09/01/16 Subjective:: Unable to obtain review of systems from patient secondary to underlying dementia. He does however deny any chest pain, shortness of breath, nausea, vomiting, fever, or generalized pain. Physical Exam Vital Signs: Temp Pulse Resp BP Pulse Ox 98.7 F 70 16 135/52 H 94 09/01/16 15:17 09/01/16 15:17 09/01/16 15:17 09/01/16 15:17 09/01/16 15:17 Intake & Output 08/31/16 09/01/16 09/02/16 06:59 06:59 06:59 Intake Total 700 1311 Balance 700 1311 Weight 143.1 kg 139.4 kg Exam: GENERAL: No acute distress HEENT: Conjunctiva clear, nonicteric, moist mucous membranes, no JVD, midline trachea RESPIRATORY: occasional rhonchi bilateral CARDIAC: IRR, +SM, no rub or gallop ABDOMEN: Soft, nondistended, nontender, positive bowel sounds, no rebound, no guarding EXTREMETIES: No edema, cyanosis, clubbing NEUROLOGIC: Alert, oriented to person, CN's grossly intact SKIN: No rash, wounds PSYCH: Normal mood, normal affect Results Laboratory Results: 09/01/16 04:11 09/01/16 04:11 09/01/16 09/01/16 04:11 04:11 WBC 7.3 RBC 3.56 L Hgb 12.0 L Hct 35.4 L MCV 99 H MCH 33.6 H MCHC 33.8 RDW 13.4 Plt Count 141 L Seg Neutrophils % 50.3 Lymphocytes % 31.3 Monocytes % 5.6 Eosinophils % 11.4 H Basophils % 1.4 Absolute Neutrophils 3.7 Absolute Lymphocytes 2.3 Absolute Monocytes 0.4 Absolute Eosinophils 0.8 H Absolute Basophils 0.1 Sodium 138.8 Potassium 4.3 Chloride 106 Carbon Dioxide 21 L Anion Gap 12 BUN 55 H Creatinine 1.40 H Est GFR ( Amer) 58 L Est GFR (Non-Af Amer) 48 L Glucose 89 Calcium 8.6 08/30/16 08/30/16 08/30/16 09:00 15:00 21:05 Troponin I 0.031 0.024 0.029 Impressions: Chest X-Ray 08/30/16 00:00 IMPRESSION: No definite acute findings. Modified Barium Swallow 08/31/16 00:00 IMPRESSION: LARYNGEAL PENETRATION DESCRIBED. NO ASPIRATION SEEN.PLEASE SEE SPEECH PATHOLOGIST REPORT FOR OTHER FINDINGS AND RECOMMENDATIONS. Assessment & Plan - Diagnosis (1) Sepsis Qualifiers: Sepsis type: sepsis due to unspecified organism Qualified Code(s): A41.9 - Sepsis, unspecified organism Is this a current diagnosis for this admission?: YesPlan: Technical sepsis criteria on admission with my current suspected source being underlying pneumonia plus or minus cellulitis, patient demonstrates no signs of endorgan damage. (2) Afib Qualifiers: Atrial fibrillation type: chronic Qualified Code(s): I48.2 - Chronic atrial fibrillation Is this a current diagnosis for this admission?: YesPlan: Currently on metoprolol and is not on blood thinner. Recommend anticoagulation due to fall risk (3) CAD (coronary artery disease) Qualifiers: Coronary Disease-Associated Artery/Lesion type: unspecified vessel or lesion type [place] vs. transplanted heart: unspecified whether [place] or transplanted heart Is this a current diagnosis for this admission?: Yes (4) Chronic obstructive pulmonary disease (COPD) Qualifiers: COPD type: unspecified COPD Qualified Code(s): J44.9 - Chronic obstructive pulmonary disease, unspecified Is this a current diagnosis for this admission?: YesPlan: Repeat chest x-ray did not reveal any underlying pneumonia. Nebulized treatments and transition patient to Omnicef and azithromycin. Consider steroid although there is no bronchospasm. 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 Have discussed this with family and they are in agreement that the PEG tube is not in patient's best interest. They do understand the continuing to feed patient may result in life-threatening or life ending aspiration pneumonia. They accept this consequence. - Time Time Spent with patient: 25-34 minutes Medications reviewed and adjusted accordingly: Yes
[2016-09-01] MEDS: CEFTRIAXONE 2 GM/D5W RTU 2 GM/50 ML RTUPB IV SCH (21:29)
[2016-09-02 04:50] LABS: ABSOLUTE BASOPHILS # (AUTO) 0.1 10^3/uL (0.0-0.2); ABSOLUTE LYMPHOCYTES (AUTO) 2.6 10^3/uL (0.5-4.7); ABSOLUTE MONOCYTES (AUTO) 0.5 10^3/uL (0.1-1.4); ABSOLUTE NEUT (AUTO) 3.8 10^3/uL (1.7-8.2); BASOPHILS % (AUTO) 0.8 % (0-2); HEMATOCRIT 34.4 % (37.9-51.0); HEMOGLOBIN 11.4 g/dL (13.5-17.0); HGB HCT DIFFERENCE -0.2; LYMPHOCYTES % (AUTO) 32.9 % (13-45); MEAN CORPUSCULAR HEMOGLOBIN 32.6 pg (27.0-33.4); MEAN CORPUSCULAR HGB CONC 33.1 g/dL (32.0-36.0); MEAN CORPUSCULAR VOLUME 99 fl (80-97); MONOCYTES % (AUTO) 6.5 % (3-13); RED BLOOD COUNT 3.48 10^6/uL (4.35-5.55); RED CELL DISTRIBUTION WIDTH 13.8 % (11.5-14.0); SEGMENTED NEUTROPHILS % (AUTO) 46.8 % (42-78)
[2016-09-02] MEDS: HEPARIN SOD (PORCINE) 5,000 UNIT/ML 1 ML SYRINGE SUBCUT SCH ×2 (05:03→12:05)
[2016-09-02 05:05] LABS: ANION GAP 10 (5-19); BLOOD UREA NITROGEN 49 mg/dL (7-20); CALCIUM 8.5 mg/dL (8.4-10.2); CARBON DIOXIDE 23 mmol/L (22-30); CHLORIDE 106 mmol/L (98-107); CREATININE RESULT 1.46 mg/dL (0.52-1.25); GLUCOSE 101 mg/dL (75-110); POTASSIUM 4.1 mmol/L (3.6-5.0); SODIUM 138.9 mmol/L (137-145)
[2016-09-02] MEDS: FUROSEMIDE 40 MG TABLET PO SCH (09:42)
[2016-09-02] MEDS: DILTIAZEM HCL 120 MG CAP.SR.24H PO SCH (09:42)
[2016-09-02] MEDS: METOPROLOL TARTRATE 50 MG TABLET PO SCH (09:43)
[2016-09-02] MEDS: MEMANTINE HCL 10 MG TABLET PO SCH (09:43)
[2016-09-02] MEDS: AZITHROMYCIN 250 MG TABLET PO SCH (09:43)
[2016-09-02] MEDS: ALLOPURINOL 100 MG TABLET PO SCH (09:43)
[2016-09-02] MEDS: ASPIRIN 81 MG TABLET, ENT COATED PO SCH (09:43)
[2016-09-02] MEDS: DOCUSATE SODIUM 100 MG CAPSULE PO SCH (09:43)
[2016-09-02 11:22] VITALS: BP 132/57
--- NOTE | 2016-09-04 17:09 | PDOC DISCHARGE SUMMARY ---
General - Admit/Disc Date/PCP Admission Date/Primary Care Provider: 08/30/16 08:12 Discharge Date: 09/02/16 - Discharge Diagnosis (1) Sepsis Is this a current diagnosis for this admission?: Yes (2) Afib Is this a current diagnosis for this admission?: Yes (3) CAD (coronary artery disease) Is this a current diagnosis for this admission?: Yes (4) Chronic obstructive pulmonary disease (COPD) Is this a current diagnosis for this admission?: Yes (5) Dementia Is this a current diagnosis for this admission?: Yes (6) Gout Is this a current diagnosis for this admission?: Yes (7) HTN (hypertension) Is this a current diagnosis for this admission?: Yes (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 Is this a current diagnosis for this admission?: Yes (9) Venous stasis ulcers Is this a current diagnosis for this admission?: Yes (10) Dysphagia, oropharyngeal phase Is this a current diagnosis for this admission?: Yes - Additional Information Resuscitation Status: Full Code Discharge Diet: Regular, Other (Comments) - puree Discharge Activity: Activity As Tolerated Home Medications: Allopurinol [Zyloprim 100 mg Tablet] 100 mg PO DAILY 02/27/13 Diltiazem HCl [Dilt-Cd] 120 mg PO DAILY 02/27/13 Furosemide [Lasix 40 mg Tablet] 40 mg PO QAM 02/27/13 Memantine HCl [Namenda 10 mg Tablet] 10 mg PO BID 02/27/13 Aspirin [Aspirin EC] 1 tab PO DAILY 08/30/16 Melatonin 3 mg PO DAILYP PRN 08/30/16 Amox Tr/Potassium Clavulanate [Augmentin 400-57 mg/5 mL Suspension] 5 ml PO TID #1 bottle 09/02/16 Metoprolol Tartrate [Lopressor 50 mg Tablet] 50 mg PO BID #60 09/02/16 History of Present Illness History of Present Illness: Patient has dementia and is unable to tell me why he is here. There is no family present at bedside. Current history is obtained from the emergency department notes and physician notes. I did discuss this with the ER physician. DYLLAN DEMARCO JR is a 86 year old male who presents with complaint of weakness. Patient himself feels well. Patient lives with family. Per the paramedics of family says that yesterday he was up and walking and today he did not want to get up and walking easing more weak than usual. No recent fevers. Patient denies any pain. Patient has no other complaints at this time. Denies any vomiting or diarrhea. He denies chest pain. He had normal temperature via paramedics. His oxygenation was around 95% on room air. Hospital Course Hospital Course: Be mildly dehydrated and he was rehydrated gently. He had an improvement of his overall appetite. To have mild aspiration pneumonia and a modified barium swallow was performed. Patient was found to not be safe for any consistency of food or fluid and discussion with family was had and they the father would not want a PEG tube. They did understand that he may 1 Day Pass from aspiration, but except at risk and wish to continue feeding him in the safest manner possible. Patient was placed on a pured/thin liquids and was doing well. Patient had no further fevers and was discharged home in stable condition. Physical Exam Vital Signs: Temp Pulse Resp BP Pulse Ox 98.3 F 73 18 132/57 H 94 09/02/16 11:17 09/02/16 11:17 09/02/16 11:17 09/02/16 11:17 09/02/16 11:17 Exam: GENERAL: No acute distress HEENT: Conjunctiva clear, nonicteric, moist mucous membranes, no JVD, midline trachea RESPIRATORY: CTAB CARDIAC: IRR, +SM, no rub or gallop ABDOMEN: Soft, nondistended, nontender, positive bowel sounds, no rebound, no guarding EXTREMETIES: No edema, cyanosis, clubbing NEUROLOGIC: Alert, oriented to person, CN's grossly intact SKIN: No rash, wounds PSYCH: Normal mood, normal affect Results Laboratory Results: 09/02/16 04:30 09/02/16 04:30 08/30/16 08/30/16 08/30/16 09:00 15:00 21:05 Troponin I 0.031 0.024 0.029 Impressions: Chest X-Ray 08/30/16 00:00 IMPRESSION: No definite acute findings. Modified Barium Swallow 08/31/16 00:00 IMPRESSION: LARYNGEAL PENETRATION DESCRIBED. NO ASPIRATION SEEN.PLEASE SEE SPEECH PATHOLOGIST REPORT FOR OTHER FINDINGS AND RECOMMENDATIONS. Qualifiers PATEINT BEING DISCHARGED WITH ANY OF THE FOLLOWING DIAGNOSIS?: No Plan Time Spent: Less than 30 Minutes
== END 2016-09-02 13:15 | disposition home health service (06) | DRG 871 ==
LOC: ER 22:58 → EH 08-30 07:45 → UNDOADMIN 08-30 07:45 → EH 08-30 08:12 → 5 08-30 17:48
PROVIDERS: ADMIT Internal Medicine; ATTEND Internal Medicine
DX: A41.9 Sepsis, unspecified organism (principal); J69.0 Pneumonitis due to inhalation of food and vomit; N18.4 Chronic kidney disease, stage 4 (severe); I48.2 Chronic atrial fibrillation; I25.10 Atherosclerotic heart disease of native coronary artery without angina pectoris; J44.9 Chronic obstructive pulmonary disease, unspecified; I12.9 Hypertensive chronic kidney disease with stage 1 through stage 4 chronic kidney disease, or unspecified chronic kidney disease; I87.8 Other specified disorders of veins; L97.519 Non-pressure chronic ulcer of other part of right foot with unspecified severity; R13.12 Dysphagia, oropharyngeal phase; M10.9 Gout, unspecified; K21.9 Gastro-esophageal reflux disease without esophagitis; F03.90 Unspecified dementia, unspecified severity, without behavioral disturbance, psychotic disturbance, mood disturbance, and anxiety; M19.90 Unspecified osteoarthritis, unspecified site; Z79.82 Long term (current) use of aspirin; Z79.899 Other long term (current) drug therapy; Z95.5 Presence of coronary angioplasty implant and graft; Z98.84 Bariatric surgery status
CPT/HCPCS: 36415; 51701; 71010; 71020; 74230; 80048; 80053; 81001; 82962; 83605; 83735; 84484; 85025; 87040; 87804; 93005; 93010; 96365; 96366; 96367; 99285; G8978-GP; G8979-GP; G8996-GN; G8997-GN; G8998-GN; J0360; J0696; J1644; J3370; J3490; J7040

== ENCOUNTER 2016-10-07 21:52 | Emergency (ER) | payer MEDICARE, MEDICAID ==
--- NOTE | 2016-10-07 22:23 | ER Document Report ---
ED General - General Stated Complaint: UNABLE TO EAT/DRINK Time Seen by Provider: 10/07/16 22:11 Notes: 86-year-old male with multiple chronic medical issues including severe peripheral vascular disease, COPD, advanced dementia with dysphasia causing a recent admit last month for aspiration pneumonia presents from home for fever. He felt warm to the daughter and she took his temperature was 99 but it "kept going up" and she called EMS. Per them his pressures were in the 110s his heart rate was normal but he was febrile. They gave 500 mL's of saline. In conversation with the daughter as it sounds like the patient was discharged without any feeding tube and they were made aware that he would 1 day from aspiration although he is DNR/DNI he is not on hospice. He drinks Ensure only. No coughing vomiting or diarrhea. E/M caveat: History limited secondary to dementia. TRAVEL OUTSIDE OF THE [place] IN LAST 30 DAYS: No - Related Data Allergies/Adverse Reactions: No Known Allergies Allergy (Verified 03/10/12 10:44) Past Medical History - General Information source: Relative - Social History Smoking Status: Unknown if Ever Smoked Family History: Reviewed & Not Pertinent - Past Medical History Cardiac Medical History: Reports: Hx Atrial Fibrillation, Hx Coronary Artery Disease, Hx Heart Attack, Hx Hypercholesterolemia, Hx Hypertension Pulmonary Medical History: Reports: Hx COPD Renal/ Medical History: Reports: Hx Renal Insufficiency GI Medical History: Reports: Hx Gastroesophageal Reflux Disease Musculoskeltal Medical History: Reports Hx Arthritis, Reports Hx Gout Psychiatric Medical History: Reports: Hx Dementia Past Surgical History: Reports: Hx Cardiac Catheterization, Hx Cardiac Surgery - "hole in heart repair", Hx Coronary Stent, Hx Gastric Bypass Surgery, Hx Orthopedic Surgery - back surgery - Immunizations Hx Diphtheria, Pertussis, Tetanus Vaccination: No Review of Systems - Review of Systems Notes: REVIEW OF SYSTEMS Attainable secondary to dementia PHYSICAL EXAMINATION General: No acute distress, well-nourished. Frail-appearing. Gaunt. Head: Atraumatic, normocephalic. ENT: Mouth normal, oropharynx very dry, no exudates or tonsillar enlargement Eyes: Conjunctiva normal, pupils equal, lids normal Neck: No JVD, supple, no guarding CVS: Normal rate, regular rhythm, no murmurs Resp: No resp distress, equal and normal breath sounds bilaterally GI: Nondistended, soft, no tenderness to palpation, no rebound or guarding Ext: No deformities, no edema, normal range of motion in upper and lower ext. Absent lower extremity pulses but good cap refill and warm bilaterally. 2 shallow ulcers on the left foot. Deep ulcer just proximal to the dorsum of the right third MTP joint which probes to bone. Back: No CVA or midline TTP Skin: No rash, warm Lymphatic: No lymphadeopathy noted Neuro: Awake, alert. Face symmetric. GCS 15. Physical Exam - Vital signs Vitals: Pulse Ox 94 10/07/16 22:07 Course - Re-evaluation Re-evalutation: 10/07/16 22:22 Extremely frail and chronically ill 86-year-old male presents with fever. He has no apparent source on exam other than a deep ulcer on his right foot. Differential includes aspiration pneumonitis versus pneumonia, osteomyelitis. Also UTI. Less likely cellulitis or abscess given his exam. It is within his family's wishes on his behalf (they are his medical decision makers) to keep him DNR/DNI in the ED, do a limited workup, and admit only if necessary. We will assume a sepsis workup. 10/07/16 23:24 Labs have all returned normal. X-ray of foot shows no osteo-. Chest x-ray is negative. Urinalysis negative except for some blood likely a result of traumatic Coates insertion given the nurse told me it was difficult. Given the patient has not had a fever here and has not had antipyretics, I think he is stable for discharge. I do not believe admission at this point for a home fever would be within his goals of care and his daughters agree. I have discussed with the patient there likely diagnosis, aftercare plan, follow -up plans and my usual and customary return precautions. They verbalized understanding of this. 10/07/16 23:51 - Vital Signs Vital signs: Temp Pulse Resp BP Pulse Ox 17 152/57 H 98 10/07/16 23:15 10/07/16 23:15 10/07/16 23:15 - Laboratory Result Diagrams: 10/07/16 22:17 10/07/16 22:17 Laboratory results interpreted by me: 10/07/16 10/07/16 10/07/16 22:17 22:49 23:15 RBC 3.65 L Hgb 12.0 L Hct 36.4 L MCV 100 H POC Glucose 116 H Urine Blood LARGE H Urine Ascorbic Acid 40 H - Diagnostic Test Radiology reviewed: Image reviewed, Reports reviewed - EKG Interpretation by Me EKG shows normal: Sinus rhythm Boykins/QRS: RBBB - Unchanged from prior Discharge - Discharge Clinical Impression: Fever, unspecified Condition: Good Disposition: HOME, SELF-CARE Instructions: Fever ([facility]) Additional Instructions: Your father was seen in the emergency room for a fever. He did not have a fever in the ER and all of his laboratory testing and other infectious testing was normal. He will continue to decline over time however there is no reason to admit him today and we have agreed upon this plan. Please contact his primary care doctor on Monday and have him checked.
--- NOTE | 2016-10-07 22:24 | RADIOLOGY REPORT (SQ) ---
EXAM DESCRIPTION: CHEST SINGLE VIEW COMPLETED DATE/TIME: 10/07/2016 10:11 pm REASON FOR STUDY: weakness COMPARISON: 08/30/2016 EXAM PARAMETERS: NUMBER OF VIEWS: One view. TECHNIQUE: Single frontal radiographic view of the chest acquired. RADIATION DOSE: NA LIMITATIONS: None. FINDINGS: LUNGS AND PLEURA: Stable chronic lung change without new opacities, masses or pneumothorax . No pleural effusion. MEDIASTINUM AND HILAR STRUCTURES: No masses. Contour normal. HEART AND VASCULAR STRUCTURES: Heart stable in size. Normal vasculature. BONES: No acute findings. HARDWARE: Stable. OTHER: No other significant finding. IMPRESSION: NO ACUTE CARDIOPULMONARY PROCESS. NO SIGNIFICANT CHANGE FROM PRIOR STUDY. TECHNICAL DOCUMENTATION: JOB ID: [id number]
[2016-10-07 22:48] LABS: VENOUS BLOOD BASE EXCESS 2.2 mmol/L; VENOUS BLOOD HCO3 27.7 mmol/L (20-32); VENOUS BLOOD PCO2 45.6 mmHg (35-63); VENOUS BLOOD PH 7.4 (7.30-7.42)
[2016-10-07 22:56] LABS: ABSOLUTE BASOPHILS # (AUTO) 0.1 10^3/uL (0.0-0.2); ABSOLUTE EOSINOPHILS # (AUTO) 0.6 10^3/uL (0.0-0.6); ABSOLUTE LYMPHOCYTES (AUTO) 2.2 10^3/uL (0.5-4.7); ABSOLUTE MONOCYTES (AUTO) 0.6 10^3/uL (0.1-1.4); ABSOLUTE NEUT (AUTO) 6.8 10^3/uL (1.7-8.2); BASOPHILS % (AUTO) 0.9 % (0-2); EOSINOPHILS % (AUTO) 5.5 % (0-6); HEMATOCRIT 36.4 % (37.9-51.0); HGB HCT DIFFERENCE -0.4; LYMPHOCYTES % (AUTO) 21.7 % (13-45); MEAN CORPUSCULAR HEMOGLOBIN 32.8 pg (27.0-33.4); MEAN CORPUSCULAR HGB CONC 32.9 g/dL (32.0-36.0); MEAN CORPUSCULAR VOLUME 100 fl (80-97); MONOCYTES % (AUTO) 5.8 % (3-13); RED BLOOD COUNT 3.65 10^6/uL (4.35-5.55); SEGMENTED NEUTROPHILS % (AUTO) 66.1 % (42-78); WHITE BLOOD COUNT 10.3 10^3/uL (4.0-10.5)
--- NOTE | 2016-10-07 22:56 | RADIOLOGY REPORT (SQ) ---
EXAM DESCRIPTION: FOOT RIGHT 2 VIEWS COMPLETED DATE/TIME: 10/07/2016 10:47 pm REASON FOR STUDY: ?osteo 3rd MTP dorsal COMPARISON: None. NUMBER OF VIEWS: Two views. TECHNIQUE: AP and lateral radiographic images acquired of the right foot. LIMITATIONS: Overlying gauze/packing material limits evaluation. FINDINGS: MINERALIZATION: Osteopenia. BONES: No acute fracture or dislocation. No worrisome bone lesions. 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 No erosive change. SOFT TISSUES: Vascular calcification. No focal soft tissue swelling. OTHER: No other significant finding. IMPRESSION: NO DEFINITE RADIOGRAPHIC EVIDENCE OF OSTEOMYELITIS HOWEVER EVALUATION OF THE 3RD PROXIMA L PHALANX IS LIMITED DUE TO OVERLYING GAUZE/ PACKING MATERIAL. TECHNICAL DOCUMENTATION: JOB ID: [id number] [employer]- All Rights Reserved
[2016-10-07 23:44] LABS: APPEARANCE,URINE CLEAR; BILIRUBIN,URINE NEGATIVE (NEGATIVE); GLUCOSE, URINE NEGATIVE (NEGATIVE); KETONES,URINE NEGATIVE (NEGATIVE); LEUKOCYTE ESTERASE,URINE NEGATIVE (NEGATIVE); NITRITE,URINE NEGATIVE (NEGATIVE); PROTEIN,URINE NEGATIVE (NEGATIVE); URINE SPECIFIC GRAVITY 1.009; UROBILINOGEN,URINE NEGATIVE mg/dL (<2.0)
[2016-10-07 23:46] LABS: PROTHROMBIN TIME 13.7 SEC (11.4-15.4)
[2016-10-07 23:49] LABS: ALANINE AMINOTRANSFERASE 40 U/L (21-72); ALBUMIN 2.9 g/dL (3.5-5.0); ALKALINE PHOSPHATASE 192 U/L (38-126); ANION GAP 10 (5-19); ASPARTATE AMINO TRANSFERASE 40 U/L (17-59); BILIRUBIN,DIRECT 0.3 mg/dL (0.0-0.4); BILIRUBIN,TOTAL 0.7 mg/dL (0.2-1.3); BLOOD UREA NITROGEN 78 mg/dL (7-20); C-REACTIVE PROTEIN 17.3 mg/L (<10.0); CALCIUM 8.1 mg/dL (8.4-10.2); CARBON DIOXIDE 25 mmol/L (22-30); CHLORIDE 104 mmol/L (98-107); CREATININE RESULT 1.68 mg/dL (0.52-1.25); GLUCOSE 103 mg/dL (75-110); POTASSIUM 4.3 mmol/L (3.6-5.0); SODIUM 138.6 mmol/L (137-145); TOTAL PROTEIN 6.1 g/dL (6.3-8.2)
[2016-10-08 01:40] VITALS: BP 161/56
--- NOTE | 2016-10-08 15:18 | EKG REPORT ---
SEVERITY:- ABNORMAL ECG - SINUS RHYTHM RIGHT BUNDLE BRANCH BLOCK : Confirmed by: Elisabeth Navarro MD 08-Oct-2016 15:17:49
== END 2016-10-08 01:47 | disposition home or self-care (01) ==
LOC: ER 21:52
DX: R50.9 Fever, unspecified (principal); R13.10 Dysphagia, unspecified; J44.9 Chronic obstructive pulmonary disease, unspecified; I45.10 Unspecified right bundle-branch block; F03.90 Unspecified dementia, unspecified severity, without behavioral disturbance, psychotic disturbance, mood disturbance, and anxiety; I73.9 Peripheral vascular disease, unspecified; L97.519 Non-pressure chronic ulcer of other part of right foot with unspecified severity; L97.529 Non-pressure chronic ulcer of other part of left foot with unspecified severity; I25.10 Atherosclerotic heart disease of native coronary artery without angina pectoris; Z87.01 Personal history of pneumonia (recurrent); Z66 Do not resuscitate; I25.2 Old myocardial infarction; I10 Essential (primary) hypertension; Z98.61 Coronary angioplasty status; Z95.1 Presence of aortocoronary bypass graft
CPT/HCPCS: 36415; 51702; 71010; 80053; 81001; 82803; 82962; 83605; 85025; 85610; 86140; 87040; 87086; 93005; 93010; 99284